=== PATIENT | male | born 1985 | race Hispanic/Latino ===

== ENCOUNTER 2018-05-09 20:07 | Emergency (ER) | payer OTHER ==
--- NOTE | 2018-05-09 21:15 | EDPHYS ---
Physician Documentation [facility] Name: Vasu Negro Age: 32 yrs Sex: Male : 1985 Arrival Date: 05/09/2018 Time: 20:09 Bed 11 Private MD: ED Physician Jama Cintron HPI: 05/09 21:08 This 32 yrs old Male presents to ER via Ambulatory with complaints of Arm kb Injury. 21:08 The patient or guardian complains of pain, that is acute, swelling, tenderness. The kb complaints affect the left bicep. Context: The problem was sustained at a the gym, resulted from lifting weight . Onset: The symptoms/episode began/occurred just prior to arrival. Treatment prior to arrival includes: no previous treatment. Modifying factors: The symptoms are alleviated by nothing. the symptoms are aggravated by movement, lifting weight, bending arm. Associated signs and symptoms: Pertinent positives: pain, swelling, Pertinent negatives: decreased range of motion, deformity, erythema, fever, nausea, numbness, tingling, vomiting, warmth, weakness. Severity of symptoms: At their worst the symptoms were moderate, in the emergency department the symptoms are unchanged. The patient has not experienced similar symptoms in the past. The patient has not recently seen a physician. Historical: - Allergies: 20:15 No Known Allergies; lp1 - Home Meds: 20:15 None [Active]; lp1 - PMHx: 20:15 None; lp1 - PSHx: 20:15 None; lp1 - Immunization history:: Adult Immunizations up to date. - Social history:: Smoking status: Patient/guardian denies using tobacco. - Ebola Screening: : No symptoms or risks identified at this time. ROS: 21:12 Constitutional: Negative for fever, chills, and weight loss, Cardiovascular: Negative kb for chest pain, palpitations, and edema, Respiratory: Negative for shortness of breath, cough, wheezing, and pleuritic chest pain, Abdomen/GI: Negative for abdominal pain, nausea, vomiting, diarrhea, and constipation, Skin: Negative for injury, rash, and discoloration, Neuro: Negative for headache, weakness, numbness, tingling, and seizure. 21:12 MS/extremity: Positive for injury or acute deformity, pain, swelling, tenderness, of the left bicep. Exam: 21:13 Constitutional: This is a well developed, well nourished patient who is awake, alert, kb and in no acute distress. Head/Face: Normocephalic, atraumatic. Neck: Trachea midline, no thyromegaly or masses palpated, and no cervical lymphadenopathy. Supple, full range of motion without nuchal rigidity, or vertebral point tenderness. No Meningismus. Chest/axilla: Normal chest wall appearance and motion. Nontender with no deformity. No lesions are appreciated. Cardiovascular: Regular rate and rhythm with a normal S1 and S2. No gallops, murmurs, or rubs. Normal PMI, no JVD. No pulse deficits. Respiratory: Lungs have equal breath sounds bilaterally, clear to auscultation and percussion. No rales, rhonchi or wheezes noted. No increased work of breathing, no retractions or nasal flaring. Abdomen/GI: Soft, non-tender, with normal bowel sounds. No distension or tympany. No guarding or rebound. No evidence of tenderness throughout. Skin: Warm, dry with normal turgor. Normal color with no rashes, no lesions, and no evidence of cellulitis. Neuro: Awake and alert, GCS 15, oriented to person, place, time, and situation. Cranial nerves II-XII grossly intact. Motor strength 5/5 in all extremities. Sensory grossly intact. Cerebellar exam normal. Normal gait. 21:13 Musculoskeletal/extremity: Extremities: grossly normal except: noted in the left bicep: decreased ROM, pain, swelling, tenderness, ROM: limited active range of motion due to pain, in the left bicep, Circulation is intact in all extremities. Sensation intact. Vital Signs: 20:15 BP 137 / 92; Pulse 78; Resp 18; Temp 97.7(TE); Pulse Ox 100% on R/A; Weight 102.06 kg; lp1 Height 5 ft. 8 in. (172.72 cm); Pain 3/10; 21:24 BP 125 / 78; Pulse 70; Resp 18; Pulse Ox 100% on R/A; Pain 2/10; mg2 20:15 Body Mass Index 34.21 (102.06 kg, 172.72 cm) lp1 MDM: 20:18 Patient medically screened. kb 21:12 Data reviewed: vital signs, nurses notes. Data interpreted: Pulse oximetry: on room air kb is 100 %. Interpretation: normal. Counseling: I had a detailed discussion with the patient and/or guardian regarding: the historical points, exam findings, and any diagnostic results supporting the discharge/admit diagnosis, radiology results, the need for outpatient follow up, a orthopedic surgeon, to return to the emergency department if symptoms worsen or persist or if there are any questions or concerns that arise at home. 05/09 20:22 Order name: Humerus Left XRAY; Complete Time: 21:18 kb 05/09 20:26 Order name: Sling; Complete Time: 20:26 mg2 Administered Medications: No medications were administered Disposition: 05/10 01:28 Co-signature as Attending Physician, Jama Cintron MD. rn Disposition: 05/09/18 21:14 Discharged to Home. Impression: Strain of muscle, fascia and tendon of other parts of biceps, left arm. - Condition is Stable. - Discharge Instructions: Muscle Pain, Adult, Muscle Pain, Pediatric, Muscle Strain, Gdru-ck-Colx. - Prescriptions for Cyclobenzaprine 10 mg Oral Tablet - take 1 tablet by ORAL route every 8 hours As needed; 21 tablet. Diclofenac Sodium 75 mg Oral Tablet, Delayed Release (E.C.) - take 1 tablet by ORAL route 2 times per day As needed; 30 tablet. - Medication Reconciliation Form, Thank You Letter, Antibiotic Education, Prescription Opioid Use form. - Follow up: Emergency Department; When: As needed; Reason: Worsening of condition. Follow up: Private Physician; When: 2 - 3 days; Reason: Recheck today's complaints, Continuance of care, Re-evaluation by your physician. Signatures: Dispatcher [employer] EDIA Paola Quijano, GENERAL COUNSEL-C GENERAL COUNSEL-Ckb Jama Cintron MD MD rn Pena, Laura RN RN lp1 Boo Worthy RN RN mg2 Corrections: (The following items were deleted from the chart) 05/09 21:24 21:14 05/09/2018 21:14 Discharged to Home. Impression: Strain of muscle, fascia and mg2 tendon of other parts of biceps, left arm. Condition is Stable. Forms are Medication Reconciliation Form, Thank You Letter, Antibiotic Education, Prescription Opioid Use. Follow up: Emergency Department; When: As needed; Reason: Worsening of condition. Follow up: Private Physician; When: 2 - 3 days; Reason: Recheck today's complaints, Continuance of care, Re-evaluation by your physician. kb
--- NOTE | 2018-05-09 21:15 | ER ---
Nurse's Notes [facility] Name: Vasu Negro Age: 32 yrs Sex: Male : 1985 Arrival Date: 05/09/2018 Time: 20:09 Bed 11 Private MD: Diagnosis: Strain of muscle, fascia and tendon of other parts of biceps, left arm Presentation: 05/09 20:14 Presenting complaint: Patient states: Doing deadlifts tonight and felt a pop to left lp1 bicep, stats unable to flex arm without pain. Transition of care: patient was not received from another setting of care. Onset of symptoms was May 09, 2018 at 19:45. Risk Assessment: Do you want to hurt yourself or someone else? Patient reports no desire to harm self or others. Initial Sepsis Screen: Does the patient meet any 2 criteria? No. Patient's initial sepsis screen is negative. Does the patient have a suspected source of infection? No. Patient's initial sepsis screen is negative. Care prior to arrival: None. 20:14 Method Of Arrival: Ambulatory lp1 20:14 Acuity: MINGO 4 lp1 Triage Assessment: 20:52 General: Appears in no apparent distress. comfortable. Injury Description: weight mg2 lifting. Historical: - Allergies: 20:15 No Known Allergies; lp1 - Home Meds: 20:15 None [Active]; lp1 - PMHx: 20:15 None; lp1 - PSHx: 20:15 None; lp1 - Immunization history:: Adult Immunizations up to date. - Social history:: Smoking status: Patient/guardian denies using tobacco. - Ebola Screening: : No symptoms or risks identified at this time. Screenin:51 Abuse screen: Denies threats or abuse. Denies injuries from another. Nutritional mg2 screening: No deficits noted. Tuberculosis screening: No symptoms or risk factors identified. Fall Risk None identified. Assessment: 20:50 General: Appears in no apparent distress. comfortable, Behavior is calm, cooperative. mg2 Pain: Complains of pain in left arm Pain does not radiate. Pain currently is 4 out of 10 on a pain scale. Quality of pain is described as aching, Pain began gradually, 30 min ago. Is intermittent. Neuro: Level of Consciousness is awake, alert, obeys commands, Oriented to person, place, time, situation. Cardiovascular: Capillary refill < 3 seconds Patient's skin is warm and dry. Respiratory: Airway is patent Respiratory effort is even, unlabored, Respiratory pattern is regular, symmetrical. GI: No signs and/or symptoms were reported involving the gastrointestinal system. : No signs and/or symptoms were reported regarding the genitourinary system. EENT: No signs and/or symptoms were reported regarding the EENT system. Derm: Skin is intact, is healthy with good turgor, Skin is pink, warm \T\ dry. normal. Musculoskeletal: Circulation, motion, and sensation intact. Reports pain in left arm since today after working out. 21:23 Reassessment: patient refused wearing arm sling. discharged with home meds. mg2 Vital Signs: 20:15 BP 137 / 92; Pulse 78; Resp 18; Temp 97.7(TE); Pulse Ox 100% on R/A; Weight 102.06 kg; lp1 Height 5 ft. 8 in. (172.72 cm); Pain 3/10; 21:24 BP 125 / 78; Pulse 70; Resp 18; Pulse Ox 100% on R/A; Pain 2/10; mg2 20:15 Body Mass Index 34.21 (102.06 kg, 172.72 cm) lp1 ED Course: 20:09 Patient arrived in ED. am2 20:15 Triage completed. lp1 20:16 Arm band placed on left wrist. lp1 20:18 Paola Quijano FNP-C is PHCP. kb 20:18 Jama Cintron MD is Attending Physician. kb 20:19 Boo Worthy, MATA is Primary Nurse. mg2 20:52 Patient has correct armband on for positive identification. Door closed. mg2 20:52 No provider procedures requiring assistance completed. Patient did not have IV access mg2 during this emergency room visit. 21:00 Humerus Left XRAY In Process Unspecified. EDMS Administered Medications: No medications were administered Outcome: 21:14 Discharge ordered by . kb 21:24 Discharged to home ambulatory. mg2 21:24 Condition: good 21:24 Discharge instructions given to patient, Instructed on discharge instructions, follow up and referral plans. medication usage, Demonstrated understanding of instructions, follow-up care, medications, Prescriptions given X 2. 21:24 Patient left the ED. mg2 Signatures: Dispatcher [employer] EDMS Paola Quijano FNP-C FNP-Ckb Mackenzie Brown, RN RN lp1 Shital Chambers am2 Boo Worthy, MATA RN mg2 Corrections: (The following items were deleted from the chart) 21:23 20:26 Sling applied to left arm. mg2 mg2
--- NOTE | 2018-05-09 21:16 | RAD REPORT ---
EXAM DESCRIPTION: RAD - Humerus Left - 05/09/2018 9:00 pm CLINICAL HISTORY: Arm pain, possible biceps injury COMPARISON: None. FINDINGS: No fracture is identified. There is no dislocation or periosteal reaction noted. No forei gn body seen. There is some fullness of the biceps muscle in the mid and distal aspect. Biceps tendon tear is possible. IMPRESSION: Negative left humerus examination. Clinical concerns for biceps tendon tear can be addressed with MR imaging.
== END 2018-05-09 21:24 | disposition home or self-care (01) ==
LOC: ER 20:07
DX: S46.212A Strain of muscle, fascia and tendon of other parts of biceps, left arm, initial encounter (principal); X50.0XXA Overexertion from strenuous movement or load, initial encounter; Y93.B3 Activity, free weights; Y92.39 Other specified sports and athletic area as the place of occurrence of the external cause
CPT/HCPCS: 99283